=== PATIENT | female | born 1930 | race Caucasian/White ===

== ENCOUNTER 2016-11-30 10:08 | Outpatient (CLI) | payer OTHER | END 2016-11-30 10:09 | disposition home or self-care (01) | DX: R55 Syncope and collapse (principal); G31.9 Degenerative disease of nervous system, unspecified ==

== ENCOUNTER 2017-11-28 11:00 | Outpatient (CLI) | payer OTHER | END 2017-11-28 11:01 | disposition home or self-care (01) | LOC: LAB.R 11:00 | PROVIDERS: ATTEND Registered Nurse | DX: R30.0 Dysuria (principal) | CPT/HCPCS: 87086 ==

== ENCOUNTER 2017-12-10 21:38 | Emergency (ER) | payer OTHER ==
--- NOTE | 2017-12-10 21:54 | ED Physician Documentation ---
PD HPI HEENT - Stated complaint Stated Complaint: NECK SWELLING L SIDE - Chief complaint Chief Complaint: Heent - History obtained from History obtained from: Patient - History of Present Illness Timing - onset: How many days ago (few) Timing - details: Gradual onset, Intermittant Worsens: No: Swalllowing Associated symptoms: No: Fever, Congestion, Trismus Recently seen: Not recently seen Review of Systems Constitutional: denies: Fever, Chills Eyes: reports: Photophobia. denies: Loss of vision, Decreased vision Ears: reports: Loss of hearing. denies: Ear pain Nose: denies: Rhinorrhea / runny nose, Congestion Throat: denies: Sore throat PD PAST MEDICAL HISTORY - Past Medical History Past Medical History: No Cardiovascular: None, Congestive heart failure Respiratory: None Neuro: None Endocrine/Autoimmune: None - Present Medications Home Medications: Ambulatory Orders Medication Instructions Recorded Confirmed Acetaminophen [Tylenol] 650 mg PO Q6H PRN 12/10/17 12/10/17 Digitek 125 mcg PO DAILY 12/10/17 Doxycycline Monohydrate 100 mg PO BID #14 tablet 12/10/17 Fluconazole [Diflucan] 100 mg PO ONCE #2 tablet 12/10/17 Metoprolol Tartrate 12.5 mg PO BID 12/10/17 12/10/17 Nitroglycerin 0.4 mg SL Q5M PRN 12/10/17 12/10/17 Omeprazole 40 mg PO BID 12/10/17 12/10/17 Rivaroxaban [Xarelto] 15 mg PO DAILY 12/10/17 12/10/17 Zolpidem [Ambien] 5 mg PO DAILY PM 12/10/17 12/10/17 - Allergies Allergies/Adverse Reactions: Allergies Allergy/AdvReac Type Severity Reaction Status Date / Time alendronate sodium Allergy Anaphylaxis Verified 12/10/17 22:09 [From Fosamax] dofetilide [From Tikosyn] Allergy Anaphylaxis Verified 12/10/17 22:09 dronedarone [From Multaq] Allergy Edema Verified 12/10/17 22:09 Iodinated Contrast- Oral and Allergy Anaphylaxis Verified 12/10/17 22:09 IV Dye magnesium Allergy Anaphylaxis Verified 12/10/17 22:09 nortriptyline [From Pamelor] Allergy Hallucinati Verified 12/10/17 22:09 ons oxycodone Allergy Dizziness Verified 12/10/17 22:09 piroxicam Allergy Unknown Verified 12/10/17 22:09 pregabalin [From Lyrica] Allergy Anaphylaxis Verified 12/10/17 22:09 sulfabenzamide Allergy Anaphylaxis Verified 12/10/17 22:09 hydroxyzine AdvReac Unknown Unknown Verified 12/10/17 22:09 acetaminophen [From Vicodin] AdvReac Unknown Verified 12/10/17 22:09 amoxicillin AdvReac Cramps Verified 12/10/17 22:09 baclofen AdvReac Unknown Verified 12/10/17 22:09 celecoxib [From Celebrex] AdvReac Nausea Verified 12/10/17 22:09 codeine AdvReac Anxiety Verified 12/10/17 22:09 eluxadoline [From Viberzi] AdvReac Unknown Verified 12/10/17 22:09 famotidine [From Duexis] AdvReac Unknown Verified 12/10/17 22:09 gabapentin AdvReac Hallucinati Verified 12/10/17 22:09 ons hydrocodone [From Vicodin] AdvReac Unknown Verified 12/10/17 22:09 ibuprofen [From Duexis] AdvReac Unknown Verified 12/10/17 22:09 meclizine AdvReac Dizziness Verified 12/10/17 22:09 meloxicam AdvReac Cramps Verified 12/10/17 22:09 metronidazole [From Flagyl] AdvReac Unknown Verified 12/10/17 22:09 montelukast AdvReac Unknown Verified 12/10/17 22:09 naproxen AdvReac Unknown Verified 12/10/17 22:09 oxybutynin AdvReac Unknown Verified 12/10/17 22:09 propoxyphene AdvReac Respiratory Verified 12/10/17 22:09 raloxifene [From Evista] AdvReac Dizziness Verified 12/10/17 22:09 tolterodine [From Detrol] AdvReac Nausea Verified 12/10/17 22:09 PD ED PE NORMAL - Vitals Vital signs reviewed: Yes - General General: Alert and oriented X 3, Well developed/nourished - HEENT HEENT: PERRL, Moist mucous membranes, Pharynx benign. 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 Eye Opening: Spontaneous Motor: Obeys Commands Verbal: Oriented GCS Score: 15 Results - Vitals Vitals: Oxygen O2 Source Room air PD MEDICAL DECISION MAKING - ED course Complexity details: considered differential (canal red with some swelling around level of hearing aide), d/w patient Departure - Departure Disposition: Home, Self Care Clinical Impression: Cellulitis of left ear canal, Anterior cervical adenopathy Condition: Stable Record reviewed to determine appropriate education?: Yes Instructions: ED Infec Skin Cellulitis Follow-Up: Vadim Devine MD [Primary Care Provider] - Prescriptions: Doxycycline Monohydrate 100 mg PO BID #14 tablet Fluconazole [Diflucan] 100 mg PO ONCE #2 tablet Comments: Use the Cipro ear drops 2-3 drops 4 times daily in the left ear canal. Have your hearing aide out of the ear for 3 days. Use Doxycycline antibiotic twice daily for 5 days for the infection. This could trigger a yeast infection ( vaginal) and so use the antifungal tablet on 12/13 and 12/16 to treat for that. Recheck if your ear/neck is not doing better over the next 2-3 days. Discharge Date/Time: 12/10/17 23:20
[2017-12-10] MEDS ORDERED: DOXYCYCLINE 100 MG TABLET PO STA (22:33)
[2017-12-10] MEDS ORDERED: CIPROFLOX/DEXAMETH OTIC DROPS LEFTEAR STA (22:35)
[2017-12-10] MEDS ORDERED: traMADol 50 MG TABLET PO STA (22:38)
[2017-12-10 23:45] VITALS: BP 135/76
== END 2017-12-10 23:20 | disposition home or self-care (01) ==
LOC: ED 21:38
DX: H60.12 Cellulitis of left external ear (principal); R59.0 Localized enlarged lymph nodes; I50.9 Heart failure, unspecified; Z79.01 Long term (current) use of anticoagulants
CPT/HCPCS: 99283; A9270

== ENCOUNTER 2018-02-06 10:40 | Outpatient (CLI) | payer OTHER, MEDICAID ==
--- NOTE | 2018-02-07 15:22 | Mammography Report ---
DIGITAL SCREENING MAMMOGRAM: 02/06/2018 CLINICAL INDICATION: An 87-year-old with history of benign right breast biopsy, for screening. COMPARISON: 08/2016, 07/2015, 05/2014, 04/2013, 03/2011. TECHNIQUE: Routine CC and MLO projections as well as bilateral laterally exaggerated craniocaudal views were obtained of the breasts. FINDINGS: The breasts again demonstrate heterogeneously dense fibroglandular parenchyma bilaterally. Postbiopsy changes in the right upper outer quadrant are stable. No suspicious masses, clustered microcalcifications, or regions of architectural distortion are identified. IMPRESSION: BENIGN FINDINGS. RECOMMENDATION: Routine annual screening unless otherwise clinically indicated. BIRADS CATEGORY 2 - BENIGN FINDINGS. STANDARD QUALIFYING STATEMENTS: 1. This examination was reviewed with the aid of Computer-Aided Detection (CAD). 2. A negative or benign imaging report should not delay biopsy if clinically suspicious findings are present. Consider surgical consultation if warranted. More than 5% of cancers are not identified by imaging. 3. Dense breasts may obscure an underlying neoplasm. TD: 02/07/2018 15:22
== END 2018-02-06 10:41 | disposition home or self-care (01) ==
LOC: DI.N 10:40
PROVIDERS: ATTEND Internal Medicine
DX: Z12.31 Encounter for screening mammogram for malignant neoplasm of breast (principal)
CPT/HCPCS: 77067

== ENCOUNTER 2018-04-09 16:51 | Emergency (ER) | payer MEDICAID, OTHER ==
--- NOTE | 2018-04-09 18:25 | ED Physician Documentation ---
PD HPI BACK PAIN - Stated complaint Stated Complaint: SPINE PX - Chief complaint Chief Complaint: Back Pain - History obtained from History obtained from: Patient - History of Present Illness Timing - onset: How many weeks ago (1-2 weeks of worse pain. Has had ongoing back pain and seeing back specialist about nerve ablation due to pinched nerve. However, is having worse pain in lumbar area. No injury. No rash. no fevers.) Timing - duration: Weeks (1) Timing - details: Abrupt onset (she has had ongoing back pain with nerve impingement and had injection at nerve roots which did help. But has had new pain the past weeek without apparent injury that is worse and consistent.), Still present Location: Lower (upper lumbar area) Quality: Pain Associated symptoms: No: Fever, Weakness, Numbness, Incontinent of urine Improves with: No: Rest, Meds (her usual pain med not effective this past week. has large list of med sensitivities and intolerances.) Worsened by: Movement Contributing factors: No: Trauma Recently seen: Clinic (today in the office and referred to ER.) Review of Systems Constitutional: denies: Fever, Chills GI: denies: Abdominal Pain, Nausea, Vomiting, Diarrhea : denies: Dysuria, Frequency, Incontinent, Hematuria Neurologic: denies: Focal weakness, Numbness PD PAST MEDICAL HISTORY - Past Medical History Cardiovascular: None, Congestive heart failure Respiratory: None Endocrine/Autoimmune: None GI: Esophageal varices, Chronic diarrhea Psych: Depression, Anxiety Musculoskeletal: Osteoarthritis, Osteoporosis - Past Surgical History Past Surgical History: Yes Ortho: Knee replacement Cardiovascular: Pacemaker - Present Medications Home Medications: Ambulatory Orders Medication Instructions Recorded Confirmed Acetaminophen [Tylenol] 650 mg PO Q6H PRN 12/10/17 12/10/17 Digitek 125 mcg PO DAILY 12/10/17 Doxycycline Monohydrate 100 mg PO BID #14 tablet 12/10/17 Fluconazole [Diflucan] 100 mg PO ONCE #2 tablet 12/10/17 Metoprolol Tartrate 12.5 mg PO BID 12/10/17 12/10/17 Nitroglycerin 0.4 mg SL Q5M PRN 12/10/17 12/10/17 Omeprazole 40 mg PO BID 12/10/17 12/10/17 Rivaroxaban [Xarelto] 15 mg PO DAILY 12/10/17 12/10/17 Zolpidem [Ambien] 5 mg PO DAILY PM 12/10/17 12/10/17 Calcitonin [Fortical] 1 sprays TRAY DAILY #1 bottle 04/09/18 Docusate Calcium 240 mg PO DAILY #30 capsule 04/09/18 Morphine Sulfate 7.5 - 15 mg PO Q6H PRN #20 tablet 04/09/18 - Allergies Allergies/Adverse Reactions: Allergies Allergy/AdvReac Type Severity Reaction Status Date / Time alendronate sodium Allergy Anaphylaxis Verified 12/10/17 22:09 [From Fosamax] dofetilide [From Tikosyn] Allergy Anaphylaxis Verified 12/10/17 22:09 dronedarone [From Multaq] Allergy Edema Verified 12/10/17 22:09 Iodinated Contrast- Oral and Allergy Anaphylaxis Verified 12/10/17 22:09 IV Dye magnesium Allergy Anaphylaxis Verified 12/10/17 22:09 nortriptyline [From Pamelor] Allergy Hallucinati Verified 12/10/17 22:09 ons oxycodone Allergy Dizziness Verified 12/10/17 22:09 piroxicam Allergy Unknown Verified 12/10/17 22:09 pregabalin [From Lyrica] Allergy Anaphylaxis Verified 12/10/17 22:09 sulfabenzamide Allergy Anaphylaxis Verified 12/10/17 22:09 hydroxyzine AdvReac Unknown Unknown Verified 12/10/17 22:09 acetaminophen [From Vicodin] AdvReac Unknown Verified 12/10/17 22:09 amoxicillin AdvReac Cramps Verified 12/10/17 22:09 baclofen AdvReac Unknown Verified 12/10/17 22:09 celecoxib [From Celebrex] AdvReac Nausea Verified 12/10/17 22:09 codeine AdvReac Anxiety Verified 12/10/17 22:09 eluxadoline [From Viberzi] AdvReac Unknown Verified 12/10/17 22:09 famotidine [From Duexis] AdvReac Unknown Verified 12/10/17 22:09 gabapentin AdvReac Hallucinati Verified 12/10/17 22:09 ons hydrocodone [From Vicodin] AdvReac Unknown Verified 12/10/17 22:09 ibuprofen [From Duexis] AdvReac Unknown Verified 12/10/17 22:09 meclizine AdvReac Dizziness Verified 12/10/17 22:09 meloxicam AdvReac Cramps Verified 12/10/17 22:09 metronidazole [From Flagyl] AdvReac Unknown Verified 12/10/17 22:09 montelukast AdvReac Unknown Verified 12/10/17 22:09 naproxen AdvReac Unknown Verified 12/10/17 22:09 oxybutynin AdvReac Unknown Verified 12/10/17 22:09 propoxyphene AdvReac Respiratory Verified 12/10/17 22:09 raloxifene [From Evista] AdvReac Dizziness Verified 12/10/17 22:09 tolterodine [From Detrol] AdvReac Nausea Verified 12/10/17 22:09 - Social History Does the pt smoke?: No Smoking Status: Never smoker PD ED PE NORMAL - Vitals Vital signs reviewed: Yes - General General: Alert and oriented X 3, Well developed/nourished, Other (appears uncomfortable) - Neck Neck: Supple, no meningeal sign, No adenopathy - Cardiac Cardiac: RRR, No murmur - Respiratory Respiratory: Clear bilaterally - Abdomen Abdomen: Normal bowel sounds, Soft, Non tender, Non distended - Back Back: No CVA TTP, Other (tender upper lumbar area with some guarding of ROM. ) - Derm Derm: Normal color, Warm and dry - Extremities Extremities: No deformity, No tenderness to palpate, Normal ROM s pain, No edema , No calf tenderness / cord - Neuro Neuro: Alert and oriented X 3, No motor deficit, No sensory deficit Results - Vitals Vitals: Oxygen O2 Source Room air - Rads (name of study) lumbar CT Radiology: Prelim report reviewed (apparent new 20% compression fracture L1. No renal stones. No other acute. No aneurysms.) PD MEDICAL DECISION MAKING - ED course Complexity details: reviewed results, considered differential, d/w patient, d/w family (spouse) - Sepsis Event Vital Signs: Oxygen O2 Source Room air Departure - Departure Disposition: 01 Home, Self Care Clinical Impression: Back pain Qualifiers: Back pain location: low back pain Chronicity: acute Back pain laterality: bilateral Sciatica presence: without sciatica Qualified Code(s): M54.5 - Low back pain Lumbar compression fracture Qualifiers: Encounter type: initial encounter Lumbar vertebra fracture level: L1 Fracture type: closed Qualified Code(s): S32.010A - Wedge compression fracture of first lumbar vertebra, initial encounter for closed fracture Constipation Qualifiers: Constipation type: unspecified constipation type Qualified Code(s): K59.00 - Constipation, unspecified Condition: Stable Record reviewed to determine appropriate education?: Yes Instructions: ED Fx Comp Vertebral Follow-Up: Vadim Devine MD [Primary Care Provider] - Prescriptions: Calcitonin [Fortical] 1 sprays TRAY DAILY #1 bottle Docusate Calcium 240 mg PO DAILY #30 capsule Morphine Sulfate 7.5 - 15 mg PO Q6H PRN #20 tablet PRN Reason: Pain Comments: For the apparent new compression fracture at the L1 spinal bone, continue your current Duragesic (fentanyl) patch. To that add Tylenol 500 mg to 650 mg 3 times a day. And add morphine half to 1 tablet every 6 hours if needed for pain. Use a stool softener docusate daily. Continue your MiraLAX and he can use that 2-3 times a day until more regular bowel movements. To help the compression fracture heal faster, use calcitonin nasal spray daily in alternating nostrils for a month. Your allergy list and sensitivities preclude other medicine ideas I had at this time. We will see what how you do with the ones above. Discharge Date/Time: 04/09/18 21:36
[2018-04-09] MEDS ORDERED: HYDROmorphone 2 MG/ML VIAL IM STA (19:13)
[2018-04-09] MEDS ORDERED: KETOROLAC 60 MG/2 ML VIAL IM STA (19:13)
[2018-04-09] MEDS ORDERED: DEXAMETHASONE 10 MG/ML VIAL PO STA (19:13)
[2018-04-09] MEDS ORDERED: MINERAL OIL ENEMA 133 ML BOTTLE RC STA (19:14)
--- NOTE | 2018-04-09 20:05 | CT Report ---
Procedure Date: 04/09/2018 Accession Number: [id number] / [id number] Procedure: CT - KUB CPT Code: FULL RESULT: EXAM: CT ABDOMEN AND PELVIS (CT KUB) EXAM DATE: 04/09/2018 07:33 PM. CLINICAL HISTORY: Flank and low back pain, mostly right. COMPARISONS: None. TECHNIQUE: Routine axial helical CT imaging was performed through the abdomen and pelvis without IV contrast. Reconstructions: Coronal and sagittal. In accordance with CT protocol optimization, one or more of the following dose reduction techniques were utilized for this exam: automated exposure control, adjustment of mA and/or KV based on patient size, or use of iterative reconstructive technique. FINDINGS: Lung Bases: There is a trace right pleural effusion. Right Kidney/Ureter: No stones, hydronephrosis, or hydroureter. No perinephric fat stranding. Left Kidney/Ureter: No stones, hydronephrosis, or hydroureter. No perinephric fat stranding. Other Solid Organs: Noncontrast images of the solid organs are grossly unremarkable. Gallbladder/Bile Ducts: Unremarkable. Peritoneal Cavity: No free fluid, free air or frieda adenopathy. Bowel is grossly unremarkable. Pelvic Organs: No bladder stones or wall thickening. Noncontrast images of the visualized pelvic organs are unremarkable. Vasculature: There is moderate calcification of the abdominal aorta and iliac arteries without aneurysm. Other: There is a compression fracture of the L1 vertebral body with approximately 20% loss of vertebral body height. There is adjacent fat stranding around the spine raising suspicion for acute fracture. IMPRESSION: 1. Suspicious for an acute compression fracture of L1 vertebral body with 20% loss of vertebral body height. 2. No urolithiasis or hydronephrosis. 3. Trace right pleural effusion. RADIA
[2018-04-09 21:23] VITALS: BP 134/68
== END 2018-04-09 21:36 | disposition home or self-care (01) ==
LOC: ED 16:51
DX: S32.010A Wedge compression fracture of first lumbar vertebra, initial encounter for closed fracture (principal); X58.XXXA Exposure to other specified factors, initial encounter; M54.5 Low back pain; K59.00 Constipation, unspecified; Z95.0 Presence of cardiac pacemaker; Z96.659 Presence of unspecified artificial knee joint
CPT/HCPCS: 74176; 96372; 99283; A9270; J1170

== ENCOUNTER 2018-04-14 08:17 | Emergency (ER) | payer OTHER ==
[2018-04-14] MEDS ORDERED: PHENAZOPYRIDINE 100 MG TABLET PO STA (08:59)
--- NOTE | 2018-04-14 09:01 | ED Physician Documentation ---
History of Present Illness - Stated complaint Stated Complaint: FEMALE /LOWER BACK PX - Chief complaint Chief Complaint: UTI - Additonal information Additional information: hx from pt 87 female long hx incont now with hesitancy and dysuria some low back pain - but not new, has disk issues and sees a spine speicaist for that and had imaging last week (CT as cannot have MRI 2/2 PM) no fever NVD abd pain Review of Systems Constitutional: denies: Fever, Chills GI: denies: Abdominal Pain, Nausea : reports: Dysuria, Hesitancy, Incontinent (not new) Musculoskeletal: reports: Back pain (now new) PD PAST MEDICAL HISTORY - Past Medical History Cardiovascular: None, Congestive heart failure Respiratory: None Endocrine/Autoimmune: None GI: Esophageal varices, Chronic diarrhea Psych: Depression, Anxiety Musculoskeletal: Osteoarthritis, Osteoporosis - Past Surgical History Past Surgical History: Yes Ortho: Knee replacement Cardiovascular: Pacemaker - Present Medications Home Medications: Ambulatory Orders Medication Instructions Recorded Confirmed Acetaminophen [Tylenol] 650 mg PO Q6H PRN 12/10/17 12/10/17 Digitek 125 mcg PO DAILY 12/10/17 Doxycycline Monohydrate 100 mg PO BID #14 tablet 12/10/17 Fluconazole [Diflucan] 100 mg PO ONCE #2 tablet 12/10/17 Metoprolol Tartrate 12.5 mg PO BID 12/10/17 12/10/17 Nitroglycerin 0.4 mg SL Q5M PRN 12/10/17 12/10/17 Omeprazole 40 mg PO BID 12/10/17 12/10/17 Rivaroxaban [Xarelto] 15 mg PO DAILY 12/10/17 12/10/17 Zolpidem [Ambien] 5 mg PO DAILY PM 12/10/17 12/10/17 Calcitonin [Fortical] 1 sprays TRAY DAILY #1 bottle 04/09/18 Docusate Calcium 240 mg PO DAILY #30 capsule 04/09/18 Morphine Sulfate 7.5 - 15 mg PO Q6H PRN #20 tablet 04/09/18 Cephalexin [Keflex] 500 mg PO Q6H #28 capsule 04/14/18 - Allergies Allergies/Adverse Reactions: Allergies Allergy/AdvReac Type Severity Reaction Status Date / Time alendronate sodium Allergy Anaphylaxis Verified 04/14/18 08:39 [From Fosamax] dofetilide [From Tikosyn] Allergy Anaphylaxis Verified 04/14/18 08:39 dronedarone [From Multaq] Allergy Edema Verified 04/14/18 08:39 Iodinated Contrast- Oral and Allergy Anaphylaxis Verified 04/14/18 08:39 IV Dye magnesium Allergy Anaphylaxis Verified 04/14/18 08:39 nortriptyline [From Pamelor] Allergy Hallucinati Verified 04/14/18 08:39 ons oxycodone Allergy Dizziness Verified 04/14/18 08:39 piroxicam Allergy Unknown Verified 04/14/18 08:39 pregabalin [From Lyrica] Allergy Anaphylaxis Verified 04/14/18 08:39 sulfabenzamide Allergy Anaphylaxis Verified 04/14/18 08:39 hydroxyzine AdvReac Unknown Unknown Verified 04/14/18 08:39 acetaminophen [From Vicodin] AdvReac Unknown Verified 04/14/18 08:39 amoxicillin AdvReac Cramps Verified 04/14/18 08:39 baclofen AdvReac Unknown Verified 04/14/18 08:39 celecoxib [From Celebrex] AdvReac Nausea Verified 04/14/18 08:39 codeine AdvReac Anxiety Verified 04/14/18 08:39 eluxadoline [From Viberzi] AdvReac Unknown Verified 04/14/18 08:39 famotidine [From Duexis] AdvReac Unknown Verified 04/14/18 08:39 gabapentin AdvReac Hallucinati Verified 04/14/18 08:39 ons hydrocodone [From Vicodin] AdvReac Unknown Verified 04/14/18 08:39 ibuprofen [From Duexis] AdvReac Unknown Verified 04/14/18 08:39 meclizine AdvReac Dizziness Verified 04/14/18 08:39 meloxicam AdvReac Cramps Verified 04/14/18 08:39 metronidazole [From Flagyl] AdvReac Unknown Verified 04/14/18 08:39 montelukast AdvReac Unknown Verified 04/14/18 08:39 naproxen AdvReac Unknown Verified 04/14/18 08:39 oxybutynin AdvReac Unknown Verified 04/14/18 08:39 propoxyphene AdvReac Respiratory Verified 04/14/18 08:39 raloxifene [From Evista] AdvReac Dizziness Verified 04/14/18 08:39 tolterodine [From Detrol] AdvReac Nausea Verified 04/14/18 08:39 - Social History Does the pt smoke?: No Smoking Status: Never smoker PD ED PE NORMAL - Vitals Vital signs reviewed: Yes - General General: Alert and oriented X 3 - Cardiac Cardiac: RRR - Respiratory Respiratory: No respiratory distress - Abdomen Abdomen: Non tender - Back Back: No CVA TTP - Neuro Neuro: Alert and oriented X 3 Eye Opening: Spontaneous Results - Vitals Vitals: Vital Signs - 24 hr 04/14/18 08:36 Temperature 35.8 C L Heart Rate 66 Respiratory 18 Rate Blood Pressure 113/67 O2 Saturation 100 Oxygen O2 Source Room air - Labs Labs: Laboratory Tests 04/14/18 09:18 Urine Color YELLOW Urine Clarity SL. CLOUDY Urine pH 6.0 Ur Specific Graham 1.020 Urine Protein TRACE Urine Glucose (UA) NEGATIVE Urine Ketones NEGATIVE Urine Occult Blood MODERATE H Urine Nitrite NEGATIVE Urine Bilirubin NEGATIVE Urine Urobilinogen 1 (NORMAL) Ur Leukocyte Esterase MODERATE H Urine RBC 6-10 H Urine WBC >25 H Ur Squamous Epith Cells RARE Squamous Urine Crystals 6-10 Calcium Oxalate Amorphous Sediment Rare Urine Bacteria Rare Ur Microscopic Review INDICATED Urine Culture Comments INDICATED PD MEDICAL DECISION MAKING - ED course ED course: UA + WBC [place] est some bacteria few RBC but pain is figueroa low back and mild and not suggestive of renal colic will tx with pyridium and ab and dc hx amox allergy (cramps) all to sulfa, fluoroquinolones black box, with some back pain possible developing pyelo so do not feel macrobid adequate, will use keflex - Sepsis Event Vital Signs: Vital Signs - 24 hr 04/14/18 08:36 Temperature 35.8 C L Heart Rate 66 Respiratory 18 Rate Blood Pressure 113/67 O2 Saturation 100 Oxygen O2 Source Room air Departure - Departure Disposition: 01 Home, Self Care Clinical Impression: Urinary tract infection Qualifiers: Urinary tract infection type: acute cystitis Hematuria presence: with hematuria Qualified Code(s): N30.01 - Acute cystitis with hematuria Condition: Good Instructions: ED UTI Cystitis Female Follow-Up: Vadim Devine MD [Primary Care Provider] - Prescriptions: Cephalexin [Keflex] 500 mg PO Q6H #28 capsule Comments: There is a urine infection with white blood cells and bacteria There is also a small amount of blood in the urine - likely due to the infection and being on xarelto - not so much blood that I think you have a kidney stone I have prescribed an antibiotic that you are not known to be allergic to and which does not interact with your other medications You need to follow up with Dr Devine after finishing antibiotics for a repeat urine test to make sure all the infection and blood have resolved Return if worse
[2018-04-14 09:37] LABS: BILIRUBIN,URINE NEGATIVE (NEGATIVE); GLUCOSE, URINE (UA) NEGATIVE (NEGATIVE); KETONES,URINE (UA) NEGATIVE (NEGATIVE); LEUKOCYTE ESTERASE, URINE MODERATE (NEGATIVE); NITRITE,URINE NEGATIVE (NEGATIVE); OCCULT BLOOD,URINE MODERATE (NEGATIVE); PROTEIN,URINE TRACE mg/dL (NEGATIVE); UROBILINOGEN,URINE 1 (NORMAL) E.U./dL (NORMAL)
[2018-04-14 09:45] LABS: CLARITY,URINE SL. CLOUDY (CLEAR)
[2018-04-14 09:58] LABS: AMORPHOUS SEDIMENT,UR Rare /LPF; BACTERIA,URINE Rare /HPF (None Seen); SQUAMOUS EPITHELIAL CELL,UR RARE Squamous (<= Few)
[2018-04-14 09:59] LABS: CRYSTALS,URINE 6-10 Calcium Oxalate /LPF
[2018-04-14 11:00] VITALS: BP 115/69
== END 2018-04-14 10:23 | disposition home or self-care (01) ==
LOC: ED 08:17
DX: N30.01 Acute cystitis with hematuria (principal); A49.9 Bacterial infection, unspecified; Z79.01 Long term (current) use of anticoagulants; Z95.0 Presence of cardiac pacemaker; Z96.659 Presence of unspecified artificial knee joint
CPT/HCPCS: 81001; 87086; 87181; 99283; A9270; 81003

== ENCOUNTER 2018-07-23 16:26 | Emergency (ER) | payer OTHER ==
[2018-07-23 17:20] LABS: BASOPHILS % (AUTO) 0.5 %; EOSINOPHILS # (AUTO) 0.1 10^3/uL (0.0-0.7); EOSINOPHILS % (AUTO) 1.7 %; HGB - HEMOGLOBIN 12.8 g/dL (12.0-16.0); LYMPHOCYTES # (AUTO) 1.3 10^3/uL (1.5-3.5); LYMPHOCYTES % (AUTO) 24.7 %; MEAN CORPUSCULAR HEMOGLOBIN 29.3 pg (27.0-31.0); MEAN CORPUSCULAR HGB CONC 32.7 g/dL (32.0-36.0); MEAN CORPUSCULAR VOLUME 89.6 fL (81.0-99.0); MEAN PLATELET VOLUME 8.7 fL (7.9-10.8); MONOCYTES # (AUTO) 0.4 10^3/uL (0.0-1.0); MONOCYTES % (AUTO) 8.1 %; NEUTROPHILS # (AUTO) 3.3 10^3/uL (1.5-6.6); PLT - PLATELET COUNT 172 10^3/uL (130-450); RED BLOOD COUNT 4.35 10^6/uL (4.20-5.40); RED CELL DISTRIBUTION WIDTH 14.3 % (12.0-15.0); WHITE BLOOD COUNT 5.1 x10^3/uL (4.8-10.8)
[2018-07-23 17:36] LABS: ALBUMIN 4.2 g/dL (3.2-5.5); ALBUMIN/GLOBULIN RATIO 1.4 (1.0-2.2); BILIRUBIN,TOTAL 0.6 mg/dL (0.2-1.0); CALCIUM 9.4 mg/dL (8.5-10.3); CREATININE 0.9 mg/dL (0.4-1.0); TOTAL PROTEIN 7.1 g/dL (6.7-8.2)
--- NOTE | 2018-07-23 17:39 | XRAY Report ---
Reason: post op soa Procedure Date: 07/23/2018 Accession Number: [id number] / [id number] Procedure: XR - Chest 2 View X-Ray CPT Code: 84721 FULL RESULT: EXAM: CHEST RADIOGRAPHY EXAM DATE: 07/23/2018 05:16 PM. CLINICAL HISTORY: Post op soa. COMPARISON: 12/11/2014. TECHNIQUE: 2 views. FINDINGS: Lungs/Pleura: Mildly hyperexpanded similar to previous study. No acute infiltrate, consolidation, effusion, or pneumothorax. Mediastinum: Heart and mediastinal contours are unremarkable. Upper lobe vessels not distended. Other: Permanent pacemaker on the left with intact leads extending to the expected locations of right atrium and right ventricle. Osteopenia, degenerative changes, multiple vertebroplasties. IMPRESSION: No acute disease. RADIA
[2018-07-23 17:56] LABS: BILIRUBIN,URINE NEGATIVE (NEGATIVE); GLUCOSE, URINE (UA) NEGATIVE (NEGATIVE); KETONES,URINE (UA) NEGATIVE (NEGATIVE); LEUKOCYTE ESTERASE, URINE TRACE (NEGATIVE); NITRITE,URINE NEGATIVE (NEGATIVE); OCCULT BLOOD,URINE NEGATIVE (NEGATIVE); PROTEIN,URINE NEGATIVE (NEGATIVE); UROBILINOGEN,URINE 0.2 (NORMAL) E.U./dL (NORMAL)
[2018-07-23 18:00] LABS: CLARITY,URINE CLEAR (CLEAR)
--- NOTE | 2018-07-23 18:00 | ED Physician Documentation ---
PD HPI DYSPNEA - Stated complaint Stated Complaint: SOA/POST OP 06/18 - Chief complaint Chief Complaint: Resp - History obtained from History obtained from: Patient - History of Present Illness Timing - onset: Today Timing - onset during: Rest (just getting out of bed.) Timing - duration: Minutes (5-10) Timing - details: Abrupt onset (noted the dyspnea when she was awakening and getting out of bed this morning.), Now resolved Inciting event(s): Other (back surgery vertebroplasty for compression fx, done end of May.). No: Out of meds, URI, Immobilization/travel Improved by: Rest, Sitting up Worsened by: No: Exertion Associated symptoms: No: Fever, Cough, Hemoptysis, Wheezing, Palpitations, Bilateral edema Similar symptoms before: Has not had sx before Recently seen: Clinic (seen in Clinic today and referred to ER for testing for concern of ACS/MT/PE.) Review of Systems Constitutional: denies: Fever, Chills, Myalgias Nose: denies: Rhinorrhea / runny nose, Congestion Throat: denies: Sore throat Cardiac: denies: Chest pain / pressure, Palpitations, Pedal edema, Calf pain Respiratory: reports: Dyspnea. denies: Cough, Wheezing GI: denies: Abdominal Pain, Nausea, Vomiting, Diarrhea, Bloody / black stool Musculoskeletal: reports: Neck pain, Back pain Neurologic: denies: Generalized weakness, Focal weakness, Numbness, Near syncope PD PAST MEDICAL HISTORY - Past Medical History Cardiovascular: None, Congestive heart failure Respiratory: None Endocrine/Autoimmune: None GI: Esophageal varices, Chronic diarrhea Psych: Depression, Anxiety Musculoskeletal: Osteoarthritis, Osteoporosis - Past Surgical History Past Surgical History: Yes Ortho: Knee replacement Cardiovascular: Pacemaker - Present Medications Home Medications: Ambulatory Orders Medication Instructions Recorded Confirmed Acetaminophen [Tylenol] 650 mg PO Q6H PRN 12/10/17 12/10/17 Digitek 125 mcg PO DAILY 12/10/17 Doxycycline Monohydrate 100 mg PO BID #14 tablet 12/10/17 Fluconazole [Diflucan] 100 mg PO ONCE #2 tablet 12/10/17 Metoprolol Tartrate 12.5 mg PO BID 12/10/17 12/10/17 Nitroglycerin 0.4 mg SL Q5M PRN 12/10/17 12/10/17 Omeprazole 40 mg PO BID 12/10/17 12/10/17 Rivaroxaban [Xarelto] 15 mg PO DAILY 12/10/17 12/10/17 Zolpidem [Ambien] 5 mg PO DAILY PM 12/10/17 12/10/17 Calcitonin [Fortical] 1 sprays TRAY DAILY #1 bottle 04/09/18 Docusate Calcium 240 mg PO DAILY #30 capsule 04/09/18 Cephalexin [Keflex] 500 mg PO Q6H #28 capsule 04/14/18 Albuterol Sulf [Ventolin Hfa 1 - 2 puffs INH Q4HR PRN #1 inhaler 07/23/18 Inhaler] Calcitonin [Fortical] 1 sprays TRAY DAILY #1 bottle 07/23/18 Dexamethasone [Decadron] 4 mg PO DAILY #5 tablet 07/23/18 Morphine Sulfate 7.5 - 15 mg PO Q6H PRN #25 tablet 07/23/18 - Allergies Allergies/Adverse Reactions: Allergies Allergy/AdvReac Type Severity Reaction Status Date / Time alendronate sodium Allergy Anaphylaxis Verified 07/23/18 16:51 [From Fosamax] dofetilide [From Tikosyn] Allergy Anaphylaxis Verified 07/23/18 16:51 dronedarone [From Multaq] Allergy Edema Verified 07/23/18 16:51 Iodinated Contrast- Oral and Allergy Anaphylaxis Verified 07/23/18 16:51 IV Dye magnesium Allergy Anaphylaxis Verified 07/23/18 16:51 nortriptyline [From Pamelor] Allergy Hallucinati Verified 07/23/18 16:51 ons oxycodone Allergy Dizziness Verified 07/23/18 16:51 piroxicam Allergy Unknown Verified 07/23/18 16:51 pregabalin [From Lyrica] Allergy Anaphylaxis Verified 07/23/18 16:51 sulfabenzamide Allergy Anaphylaxis Verified 07/23/18 16:51 hydroxyzine AdvReac Unknown Unknown Verified 07/23/18 16:51 acetaminophen [From Vicodin] AdvReac Unknown Verified 07/23/18 16:51 amoxicillin AdvReac Cramps Verified 07/23/18 16:51 baclofen AdvReac Unknown Verified 07/23/18 16:51 celecoxib [From Celebrex] AdvReac Nausea Verified 07/23/18 16:51 codeine AdvReac Anxiety Verified 07/23/18 16:51 eluxadoline [From Viberzi] AdvReac Unknown Verified 07/23/18 16:51 famotidine [From Duexis] AdvReac Unknown Verified 07/23/18 16:51 gabapentin AdvReac Hallucinati Verified 07/23/18 16:51 ons hydrocodone [From Vicodin] AdvReac Unknown Verified 07/23/18 16:51 ibuprofen [From Duexis] AdvReac Unknown Verified 07/23/18 16:51 meclizine AdvReac Dizziness Verified 07/23/18 16:51 meloxicam AdvReac Cramps Verified 07/23/18 16:51 metronidazole [From Flagyl] AdvReac Unknown Verified 07/23/18 16:51 montelukast AdvReac Unknown Verified 07/23/18 16:51 naproxen AdvReac Unknown Verified 07/23/18 16:51 oxybutynin AdvReac Unknown Verified 07/23/18 16:51 propoxyphene AdvReac Respiratory Verified 07/23/18 16:51 raloxifene [From Evista] AdvReac Dizziness Verified 07/23/18 16:51 tolterodine [From Detrol] AdvReac Nausea Verified 07/23/18 16:51 - Social History Does the pt smoke?: No Smoking Status: Never smoker Does the pt drink ETOH?: Yes Does the pt have substance abuse?: No - Family History Family history: reports: Non contributory - Immunizations Immunizations are current?: Yes - POLST Patient has POLST: No PD ED PE NORMAL - Vitals Vital signs reviewed: Yes - General General: Alert and oriented X 3, No acute distress, Well developed/nourished - HEENT HEENT: Atraumatic, Moist mucous membranes, Pharynx benign - Neck Neck: Supple, no meningeal sign, No adenopathy, No JVD - Cardiac Cardiac: RRR, No murmur - Respiratory Respiratory: Clear bilaterally - Abdomen Abdomen: Normal bowel sounds, Soft, Non tender, Non distended, No organomegaly - Back Back: No CVA TTP, No spinal TTP - Derm Derm: Normal color, Warm and dry - Extremities Extremities: No deformity, No tenderness to palpate, Normal ROM s pain, No edema, No calf tenderness / cord - Neuro Neuro: Alert and oriented X 3, No motor deficit, Normal speech Eye Opening: Spontaneous Motor: Obeys Commands Verbal: Oriented GCS Score: 15 - Psych Psych: Normal mood, Normal affect Results - Vitals Vitals: Vital Signs - 24 hr 07/23/18 07/23/18 16:37 17:33 Temperature 36.0 C L Heart Rate 84 71 Respiratory 16 18 Rate Blood Pressure 113/46 L 136/75 H O2 Saturation 100 96 Oxygen O2 Source Room air - EKG (time done) 16:41 Rate: Rate (enter#) (82) Rhythm: NSR [place]: Normal Intervals: Normal ME QRS: Normal Ischemia: Normal ST segments. No: ST elevation c/w ischemia, ST depression - Labs Labs: Laboratory Tests 07/23/18 07/23/18 07/23/18 17:07 17:07 17:07 WBC 5.1 RBC 4.35 Hgb 12.8 Hct 39.0 MCV 89.6 MCH 29.3 MCHC 32.7 RDW 14.3 Plt Count 172 MPV 8.7 Neut # (Auto) 3.3 Lymph # (Auto) 1.3 L [place] # (Auto) 0.4 Eos # (Auto) 0.1 Baso # (Auto) 0.0 Absolute Nucleated RBC 0.00 Nucleated RBC % 0.0 Sodium 138 Potassium 3.8 Chloride 103 Carbon Dioxide 27 Anion Gap 8.0 BUN 16 Creatinine 0.9 Estimated GFR (MDRD) 59 L Glucose 124 H Calcium 9.4 Total Bilirubin 0.6 AST 26 ALT 20 Alkaline Phosphatase 83 Troponin I < 0.04 Total Protein 7.1 Albumin 4.2 Globulin 2.9 Albumin/Globulin Ratio 1.4 Lipase 28 PD MEDICAL DECISION MAKING - ED course Complexity details: reviewed results, considered differential, d/w patient - Sepsis Event Vital Signs: Vital Signs - 24 hr 07/23/18 07/23/18 16:37 17:33 Temperature 36.0 C L Heart Rate 84 71 Respiratory 16 18 Rate Blood Pressure 113/46 L 136/75 H O2 Saturation 100 96 Oxygen O2 Source Room air Departure - Departure Disposition: 01 Home, Self Care Clinical Impression: Dyspnea, unspecified Qualifiers: Dyspnea type: shortness of breath Qualified Code(s): R06.02 - Shortness of breath Low back pain Qualifiers: Chronicity: unspecified Back pain laterality: midline Sciatica presence: without sciatica Qualified Code(s): M54.5 - Low back pain Lumbar compression fracture Qualifiers: Encounter type: subsequent encounter Fracture type: closed Condition: Stable Record reviewed to determine appropriate education?: Yes Instructions: ED Dyspnea Shortness of Breath Follow-Up: Vadim Devine MD [Primary Care Provider] - Prescriptions: Albuterol Sulf [Ventolin Hfa Inhaler] 1 - 2 puffs INH Q4HR PRN #1 inhaler PRN Reason: Shortness Of Air/Wheezing Calcitonin [Fortical] 1 sprays TRAY DAILY #1 bottle Dexamethasone [Decadron] 4 mg PO DAILY #5 tablet Morphine Sulfate 7.5 - 15 mg PO Q6H PRN #25 tablet PRN Reason: Pain Comments: For your back pain, try changing from hydromorphone to morphine sulfate which does absorb better and see if it helps with the pain better. Also combine it with dexamethasone anti-inflammatory daily for the next 5 days and the calcitonin nasal spray. We will see if the combination helps. Follow-up with your primary in the next few days. Regarding the trouble breathing episode this morning, there is no signs of pneumonia, collapsed lung, heart failure, heart attack, blood clot. I do not know the episode because. If he get repeat episode you could try an albuterol inhaler 2-3 puffs and see if it makes it feel better. Discharge Date/Time: 07/23/18 19:06
[2018-07-23 18:12] LABS: BACTERIA,URINE None Seen /HPF (None Seen); RBC,URINE None Seen /HPF (0-5); SQUAMOUS EPITHELIAL CELL,UR RARE Squamous (<= Few)
[2018-07-23] MEDS ORDERED: HYDROmorphone 1 MG/ML CARPUJECT IM STA (18:35)
[2018-07-23] MEDS ORDERED: DEXAMETHASONE 10 MG/ML VIAL PO STA (18:39)
[2018-07-23 18:50] LABS: DIGOXIN < 0.2 ng/mL
[2018-07-23] MEDS ORDERED: CHERRY SYRUP 10 ML UDC PO ONE (18:50)
[2018-07-23 19:06] VITALS: BP 128/74
== END 2018-07-23 19:06 | disposition home or self-care (01) ==
LOC: ED 16:26
DX: R06.02 Shortness of breath (principal); S32.009D Unspecified fracture of unspecified lumbar vertebra, subsequent encounter for fracture with routine healing; X58.XXXD Exposure to other specified factors, subsequent encounter; Z96.659 Presence of unspecified artificial knee joint; Z95.0 Presence of cardiac pacemaker; Z98.890 Other specified postprocedural states
CPT/HCPCS: 36415; 71046; 80053; 80162; 81001; 83690; 83880; 84484; 85025; 85379; 87086; 93005; 96372; 99283; A9270; J1170; 81003